=== PATIENT | male | born 1955 | race Caucasian/White ===

== ENCOUNTER 2020-10-27 01:20 | Emergency (ER) | payer OTHER ==
[2020-10-27 01:27] VITALS: BP 143/93; PULSE 58; TEMP 98.1; BMI 27.8
[2020-10-27] MEDS ORDERED: IBUPROFEN 400 MG TABLET (FP) PO ONE ×2 (01:52)
== END 2020-10-27 01:59 | disposition home or self-care (01) ==
LOC: FER 01:20
DX: T16.1XXA Foreign body in right ear, initial encounter (principal)
CPT/HCPCS: 99283-25